=== PATIENT | male | born 1965 | race Two or more races ===

== ENCOUNTER 2017-10-28 23:27 | Emergency (ER) | payer OTHER ==
[2017-10-29] MEDS: METHYLPREDNISOLONE 125 MG INJ IM (01:47)
[2017-10-29] MEDS: DIPHENHYDRAMINE 50 MG INJ IM (01:47)
== END 2017-10-29 02:10 | disposition home or self-care (01) ==
LOC: FTE 23:27
DX: L50.0 Allergic urticaria (principal); J45.909 Unspecified asthma, uncomplicated; I10 Essential (primary) hypertension; Z87.891 Personal history of nicotine dependence
CPT/HCPCS: 96372; 99284-25

== ENCOUNTER 2018-11-27 07:10 | Emergency (ER) | payer BC, OTHER ==
[2018-11-27] MEDS: ACETAMINOPHEN 325 MG TAB PO (08:13)
[2018-11-27] MEDS: ALBUTEROL 0.083% (NEB) 2.5 MG/3 ML AMP NEB (08:20)
== END 2018-11-27 09:46 | disposition home or self-care (01) ==
LOC: FTE 09:46
DX: J06.9 Acute upper respiratory infection, unspecified (principal); J45.909 Unspecified asthma, uncomplicated; I10 Essential (primary) hypertension
CPT/HCPCS: 87400; 94664; 99283-25